=== PATIENT | female | born 1935 | race Caucasian/White ===

== ENCOUNTER 2017-05-13 13:46 | Observation (INO) | payer OTHER, BC ==
[~2017-05-13] VITALS: Ht 162.6 cm; Wt 81.6 kg
[~2017-05-13 13:46] MED LIST: ACTOS30 MG PO; AMLODIPINE BES2.5 MG PO; CALCITRIOL0.25 MCG PO; ENDOCET 5-3251 EACH PO; LISINOPRIL40 MG PO; NEURONTIN300 MG PO; TRAMADOL HCL50 MG PO; TYLENOL REGULA325 MG PO; VITAMIN B12-FO1 EACH PO; VITAMIN D33000 UNIT PO; VYTORIN 10/41 TABLET PO; Zestoretic,Prinzide PO
[2017-05-13 14:25] LABS: HEMATOCRIT 35.9 % (36.0-46.0); MCH 29.1 PG (29.0-34.0); MCHC 31.8 G/DL (30.0-36.0); MCV 91.6 FL (83-99); MEAN PLAT.VOLUME 9.5 uM^3 (9.5-12.4); PLATELET COUNT 200 K/uL (156-360); RBC DIS.WIDTH-CV 14.1 % (11.8-14.6); RBC DIS.WIDTH-SD 47.5 % (39-53); RED BLOOD COUNT 3.92 M/uL (3.80-5.20); WHITE BLOOD COUNT 9.7 K/uL (4.1-10.2)
[2017-05-13 14:35] LABS: CHLORIDE 104 mEq/L (99-109); POTASSIUM 4.1 mEq/L (3.7-5.4); SODIUM 141 mEq/L (136-147)
[2017-05-13 14:36] LABS: GLUCOSE 95 mg/dL (70-99)
[2017-05-13 14:38] LABS: ANION GAP 12 MEQ/L (2-14)
[2017-05-13 14:40] LABS: GFR ESTIMATE (CALCULATED) 51 mL/min/
[2017-05-13 14:41] LABS: UREA NITROGEN (BUN) 19 mg/dL (9-23)
[2017-05-13 14:46] LABS: TROP-I INTERPRETATION NEGATIVE; TROPONIN-I < 0.01 ng/mL (0.0-0.30)
[2017-05-13 17:22] LABS: ADD MIUA? YES; BILIRUBIN NEGATIVE; BLOOD MODERATE; COLOR YELLOW ((YELLOW)); GLUCOSE (STRIP) NEGATIVE; KETONES 5; LEUKOCYTES TRACE; NITRITE NEGATIVE; PROTEIN (STRIP) 30; SPECIFIC GRAVITY 1.013 (1.000-1.030); UROBILINOGEN 0.2 MG/DL (0.2-1.0)
[2017-05-13 17:35] LABS: BACTERIA NONE SEEN /HPF; EPITHELIAL CELLS RARE /HPF; MUCUS TRACE /LPF; UCUL ADDED? NO; WHITE BLOOD CELLS 0-5 /HPF (0-5)
[2017-05-13 18:03] VITALS: BP 180/84
[2017-05-13 19:03] VITALS: BP 137/64
[2017-05-13 19:14] LABS: Estimated Average Glucose 100 mg/dL (70-123); HEMOGLOBIN A1c (GLYCOHEMOGLOB) 5.1 % HGB (Below 5.7)
[2017-05-13] MEDS ORDERED: VITAMIN D31000 UNI2 PO (20:30)
[2017-05-13] MEDS ORDERED: VITAMIN D2000 UNIT PO (20:32)
[2017-05-13] MEDS ORDERED: TYLENOL REGULA325 MG PO (20:35)
[2017-05-13 23:56] VITALS: BP 146/65
[2017-05-14 01:38] LABS: TROP-I INTERPRETATION NEGATIVE; TROPONIN-I < 0.01 ng/mL (0.0-0.30)
[2017-05-14 04:37] VITALS: BP 138/64
[2017-05-14 05:32] LABS: HEMATOCRIT 33.2 % (36.0-46.0); MCH 29.3 PG (29.0-34.0); MCHC 31.9 G/DL (30.0-36.0); MCV 91.7 FL (83-99); MEAN PLAT.VOLUME 9.5 uM^3 (9.5-12.4); PLATELET COUNT 174 K/uL (156-360); RBC DIS.WIDTH-CV 13.8 % (11.8-14.6); RBC DIS.WIDTH-SD 46.9 % (39-53); RED BLOOD COUNT 3.62 M/uL (3.80-5.20); WHITE BLOOD COUNT 8.3 K/uL (4.1-10.2)
[2017-05-14 05:49] LABS: TROP-I INTERPRETATION NEGATIVE; TROPONIN-I < 0.01 ng/mL (0.0-0.30)
[2017-05-14 05:55] LABS: ANION GAP 7 MEQ/L (2-14); CHLORIDE 105 MEQ/L (99-109); GFR ESTIMATE (CALCULATED) 57 mL/min/; GLUCOSE 83 mg/dL (70-99); HDL CHOLESTEROL 35 MG/DL (Desirable>=50); LDL CHOLESTEROL 134 mg/dL (Desirable<100); NON-HDL CHOLESTEROL 161 mg/dL (Desirable<160); POTASSIUM 4.1 MEQ/L (3.7-5.4); SAMPLE HEMOLYSIS CHECK 0; SAMPLE ICTERIC CHECK 0; SAMPLE LIPEMIA CHECK 0; SODIUM 142 MEQ/L (136-147); TOTAL CHOLESTEROL 196 mg/dL (Desirable<200); TRIGLYCERIDES 136 MG/DL (Normal: <150); UREA NITROGEN (BUN) 15 mg/dL (9-23)
[2017-05-14 08:30] VITALS: BP 163/75
[2017-05-14] MEDS ORDERED: BIOTIN1 MG PO (11:08)
[2017-05-14 12:03] VITALS: BP 120/57
== END 2017-05-14 12:50 | disposition home or self-care (01) ==
LOC: EME 13:46 → EDOF 16:09 → 5WEST 16:09 → EDOF 16:09 → CANRESERV 16:10 → ENRESERV 16:10 → 5WEST 17:15
PROVIDERS: Emergency Medicine; Internal Medicine
DX: R55 Syncope and collapse (principal); I10 Essential (primary) hypertension; I71.4 Abdominal aortic aneurysm, without rupture; Z95.828 Presence of other vascular implants and grafts; F17.200 Nicotine dependence, unspecified, uncomplicated; Z86.39 Personal history of other endocrine, nutritional and metabolic disease; K44.9 Diaphragmatic hernia without obstruction or gangrene; R79.89 Other specified abnormal findings of blood chemistry
CPT/HCPCS: 70450; 71010; 80048; 80048 91; 80061; 81003; 83036; 84484; 85027; 93005; 99281; 99284; G0378; J2405; J7030